=== PATIENT | female | born 1945 | race African-American/Black ===

== ENCOUNTER 2017-04-29 05:33 | Day surgery (SDC) | payer MEDICARE, OTHER ==
--- NOTE | 2017-04-26 17:45 | Pre-op HX & Phy Repo 2 SIG ---
DATE OF ADMISSION: 04/29/2017 DATE OF SURGERY: 04/29/2017. PROCEDURE TO BE PERFORMED: Pars plana vitrectomy, endolaser, and Avastin. HISTORY OF PRESENT ILLNESS: The patient is a 71-year-old lady with a history of a dense vitreous hemorrhage on the right eye. The patient has a long history of diabetes, hypertension, and diabetic retinopathy. She has undergone panretinal laser and prior Avastin injections, but the hemorrhaging has become worse on the right. She is admitted for vitrectomy on that side. PAST OCULAR HISTORY: Is as noted. CURRENT MEDICATIONS: Include bumetanide, gabapentin, Lantus insulin, atorvastatin, and loperamide. ALLERGIES: She is allergic to penicillin. PHYSICAL EXAMINATION: Best vision at the time of admission was 20/100 in the right eye and 20/80 in the left with pressures of 11. The anterior segments were quiet. The anterior segments were quiet except for the presence of significant nuclear cataracts. Funduscopic examination of the right eye shows significant diabetic maculopathy and proliferative retinopathy. There is a moderately dense vitreous hemorrhage down below. ASSESSMENT: Vitreous hemorrhage, right eye. PLAN: The plan is to perform a pars plana vitrectomy with endolaser and Avastin injection in the right. The risks and benefits of surgery have been gone over with the patient including potential for infection, hemorrhage, worsening of the cataract, glaucoma, and remote possibility of loss of the eye. The risk of anesthesia was discussed. The patient understands and consents to the surgery, which will be performed on Saturday morning. Vu Pulliam M.D. DR: RUBEN JOB#: [id number] CC:
[2017-04-29] VITALS (10 sets, daily range): BP systolic 92–119; BP diastolic 57–71
[~2017-04-29] VITALS: Ht 162.6 cm; Wt 66.7 kg
[~2017-04-29 05:33] MED LIST: Avastin 10mg Inj IVITRE ONE
[2017-04-29] MEDS ORDERED: Gatifloxacin Opth Solution 0.5% ONE (05:59)
[2017-04-29] MEDS ORDERED: Cyclopentolate 1% Opth Sol ONE (05:59)
[2017-04-29] MEDS ORDERED: Phenylephrine 2.5% Op Soln ONE (06:00)
[2017-04-29] MEDS ORDERED: Flurbiprofen 0.03% Opth Sol 2.5ml ONE (06:00)
[2017-04-29] MEDS ORDERED: Pred Forte 1% Opth Susp 1ml RIGHT EYE SCH (06:00)
[2017-04-29] MEDS ORDERED: Avastin 10mg Inj IVITRE ONE (06:00)
[2017-04-29] MEDS: Phenylephrine 2.5% Op Soln RIGHT EYE SCH ×3 (06:09→06:41)
[2017-04-29] MEDS: Cyclopentolate 1% Opth Sol RIGHT EYE SCH ×3 (06:09→06:41)
[2017-04-29] MEDS: Flurbiprofen 0.03% Opth Sol 2.5ml RIGHT EYE SCH ×3 (06:09→06:41)
[2017-04-29] MEDS: Gatifloxacin Opth Solution 0.5% RIGHT EYE SCH ×3 (06:10→06:42)
[2017-04-29] MEDS ORDERED: GABAPENTIN600 MG ORAL (06:53)
[2017-04-29] MEDS ORDERED: ASPIRIN-LOW81 MG ORAL (06:53)
[2017-04-29] MEDS ORDERED: METOLAZONE5 MG PO (06:53)
[2017-04-29] MEDS ORDERED: CARVEDILOL6.25 MG ORAL (06:53)
[2017-04-29] MEDS ORDERED: BUMETANIDE2 MG ORAL (06:53)
[2017-04-29] MEDS ORDERED: ALLOPURINOL100 M1 ORAL (06:53)
[2017-04-29] MEDS ORDERED: POTASSIUM CL ER PO (06:53)
[2017-04-29] MEDS ORDERED: VITAMIN D22000 UNIT PO (06:53)
[2017-04-29] MEDS ORDERED: ENTRESTO 49 MG1 EACH PO (06:53)
[2017-04-29] MEDS ORDERED: ATORVASTATIN CA10 MG ORAL (06:53)
[2017-04-29] MEDS ORDERED: BISACODYL5 MG ORAL (06:55)
[2017-04-29 07:05] LABS: EOSINOPHILS % (AUTO) 6.6 % (0.0-3.0); LYMPHOCYTES % (AUTO) 14.9 % (20.0-45.0); MEAN CORPUSCULAR HEMOGLOBIN 27.6 PG (27.0-31.0); MEAN CORPUSCULAR HGB CONC 31.2 G/DL (32.0-36.0); MEAN CORPUSCULAR VOLUME 88 FL (80-99); MEAN PLATELET VOLUME 10.4 FL (6.5-10.1); NEUTROPHILS % (AUTO) 68.4 % (45.0-75.0); PLATELET COUNT 133 K/UL (150-450); RED BLOOD COUNT 4.29 M/UL (4.20-5.40); RED CELL DISTRIBUTION WIDTH 16.6 % (11.6-14.8); WHITE BLOOD COUNT 6.9 K/UL (4.8-10.8)
[2017-04-29] MEDS ORDERED: Sodium Hyaluronate 10 mg/ml 0.85ml ONE (07:06)
[2017-04-29] MEDS ORDERED: Povidone-Iodine 5% opth solution ONE (07:06)
[2017-04-29] MEDS ORDERED: LANTUS SOL100 UNIT/1 SUBQ (07:19)
[2017-04-29] MEDS ORDERED: NOVOLOG100 UNIT/3 SUBQ (07:19)
[2017-04-29 07:31] LABS: ANION GAP 19 (5-15); CALCIUM 9.2 mg/dL (8.6-10.2); CARBON DIOXIDE 25 mEQ/L (20-30); CHLORIDE 96 mEQ/L (98-107); CREATININE 1.7 mg/dL (0.5-0.9); HEMOLYSIS 19; POTASSIUM 3.8 mEQ/L (3.4-4.9); SODIUM 140 mEQ/L (135-145)
--- NOTE | 2017-04-29 07:37 | Pre-Procedure Note/Attestation ---
Pre-Procedure Note/Attestation Complete Prior to Procedure Planned Procedure: right Procedure Narrative: PPV, membrane peel, endolaser, Avastin injection R eye Indications for Procedure Pre-Operative Diagnosis: Vitreous hemorrhage with traction R eye Attestation I attest that I discussed the nature of the procedure; its benefits; risks and complications; and alternatives (and the risks and benefits of such alternatives ), prior to the procedure, with the patient (or the patient's legal printing supplies sales representative). I attest that, if there was a reasonable possibility of needing a blood transfusion, the patient (or the patient's legal printing supplies sales representative) was given the [facility] standardized written summary, pursuant to the Romulo Jamari Blood Safety Act ([place] Health and Safety Code # 1645, as amended). I attest that I re-evaluated the patient just prior to the surgery and that there has been no change in the patient's H&P, except as documented below: LISA RIDLEY Apr 29, 2017 07:37
[2017-04-29] MEDS ORDERED: Norco 5mg/325mg tab ORAL PRN (07:45)
[2017-04-29] MEDS ORDERED: Indocyanine Green 25mg Inj INJ ONE (08:45)
[2017-04-29] MEDS ORDERED: Alfentanil 2ml Inj ONE (09:00)
[2017-04-29] MEDS ORDERED: Sterile Water Irrig 1000ml IRRIG ONE (09:00)
[2017-04-29] MEDS ORDERED: Lidocaine 1% MPF 10mg/ml 5ml ONE (09:00)
[2017-04-29] MEDS ORDERED: Midazolam 2mg/2ml Inj ONE (09:00)
[2017-04-29] MEDS ORDERED: Propofol 10mg/ml 20ml IV ONE (09:00)
[2017-04-29] MEDS ORDERED: NS Irrig 1000ml ONE (09:00)
[2017-04-29] MEDS ORDERED: LR 1000ml ONE (09:00)
--- NOTE | 2017-04-29 09:25 | Anethesia Preoperative Eval ---
Anesthesia Pre-op PMH/ROS General Date of Evaluation: Apr 29, 2017 Time of Evaluation: 08:54 Anesthesiologist: Amina ASA Score: ASA 3 Mallampati Score Class I : Soft palate, uvula, fauces, pillars visible Class II: Soft palate, uvula, fauces visible Class III: Soft palate, base of uvula visible Class IV: Only hard plate visible Mallampati Classification: Class III Surgeon: Heraclio Diagnosis: Vitreous Hemorrhage, Vein Ocullsion OD Surgical Procedure: Vitrectomy OD Anesthesia History: none Family History: no anesthesia problems Allergies: Coded Allergies: PENICILLINS (Verified Allergy, Unknown, 03/26/17) Medications: see eMAR Past Medical History Cardiovascular: Reports: CAD - Stent X3, HTN, MA, arrhythmia - Pacemaker, other - HL Gastrointestinal/Genitourinary: Reports: GERD Endocrine: Reports: DM Musculoskeletal/Integumentary: Reports: OA PSxH Narrative: B Laser Eye, Stent X3, Pacemaker, Battery Change, Cholecystectomy, CHAZ, R Lumpectomy with Lymph node resection Anesthesia Pre-op Phys. Exam Physician Exam Last Vital Signs Date Time Temp Pulse Resp B/P Pulse Ox O2 Delivery O2 Flow Rate FiO2 04/29/17 07:03 97.7 92 20 119/71 99 Room Air Constitutional: NAD Neurologic: CN 2-12 intact Cardiovascular: RRR Respiratory: CTA Gastrointestinal: S/NT/ND Airway Exam Mallampati Score: Class III MO: limited ROM: limited Teeth: missing, intact Anesthesia Pre-op A/P Labs Hematology Test 04/29/17 06:50 White Blood Count 6.9 K/UL (4.8-10.8) Red Blood Count 4.29 M/UL (4.20-5.40) Hemoglobin 11.8 G/DL (12.0-16.0) L Hematocrit 37.8 % (37.0-47.0) Mean Corpuscular Volume 88 FL (80-99) Mean Corpuscular Hemoglobin 27.6 PG (27.0-31.0) Mean Corpuscular Hemoglobin Concent 31.2 G/DL (32.0-36.0) L Red Cell Distribution Width 16.6 % (11.6-14.8) H Platelet Count 133 K/UL (150-450) L Mean Platelet Volume 10.4 FL (6.5-10.1) H Neutrophils (%) (Auto) 68.4 % (45.0-75.0) Lymphocytes (%) (Auto) 14.9 % (20.0-45.0) L Monocytes (%) (Auto) 9.0 % (1.0-10.0) Eosinophils (%) (Auto) 6.6 % (0.0-3.0) H Basophils (%) (Auto) 1.0 % (0.0-2.0) Chemistry Test 04/29/17 06:50 Sodium Level 140 mEQ/L (135-145) Potassium Level 3.8 mEQ/L (3.4-4.9) Chloride Level 96 mEQ/L (98-107) L Carbon Dioxide Level 25 mEQ/L (20-30) Anion Gap 19 (5-15) H Blood Urea Nitrogen 47 mg/dL (7-23) H Creatinine 1.7 mg/dL (0.5-0.9) H Estimat Glomerular Filtration Rate mL/min (>60) Glucose Level 148 mg/dL (74-106) H Calcium Level 9.2 mg/dL (8.6-10.2) Risk Assessment & Plan Assessment: ASA 3 Plan: GA Status Change Before Surgery: Robin Montoya MD Apr 29, 2017 09:25
--- NOTE | 2017-04-29 09:45 | Immediate Post-Op Evaluation ---
Immediate Post-Op Evalulation Immediate Post-Op Evalulation Procedure: Vitrectomy OD Date of Evaluation: Apr 29, 2017 Time of Evaluation: 09:55 IV Fluids: 500 LR Blood Products: 0 Estimated Blood Loss: 1 Urinary Output: 0 Blood Pressure Systolic: 110 Blood Pressure Diastolic: 75 Pulse Rate: 87 Respiratory Rate: 16 O2 Sat by Pulse Oximetry: 95 Temperature (Fahrenheit): 98.3 Pain Score (1-10): 1 Nausea: No Vomiting: No Complications 0 Patient Status: awake, reacts, patent, extubated, none Hydration Status: adequate Robin Huynh MD Apr 29, 2017 09:45
--- NOTE | 2017-04-29 09:47 | 48 Hour Post Anesthesia Eval ---
Post Anesthesia Evaluation Procedure: Vitrectomy OD Date of Evaluation: Apr 29, 2017 Time of Evaluation: 12:13 Blood Pressure Systolic: 124 0: 87 Pulse Rate: 86 Respiratory Rate: 16 Temperature (Fahrenheit): 98.4 O2 Sat by Pulse Oximetry: 100 Airway: patent Nausea: No Vomiting: No Pain Intensity: 1 Hydration Status: adequate Cardiopulmonary Status: Stable Mental Status/LOC: patient returned to baseline Follow-up Care/Observations: 0 Post-Anesthesia Complications: 0 Follow-up care needed: ready to discharge Robin Huynh MD Apr 29, 2017 09:47
--- NOTE | 2017-04-29 09:49 | Brief Operative Note ---
Immediate Post Operative Note Operative Note Chief Complaint: Clouds in vision R eye Pre-op Diagnosis: Vitreous hemorrhage with traction R eye Procedure: PPV, Kenalog injection, 2mg, Avastin injection 1.25mg, Endolaser, 1307 spots R eye. Post-op Diagnosis: same as pre-op Surgeon: Heraclio Despatch Clerk: osbaldo Anesthesiologist: Amina Anesthesia: MAC Specimen: none Complications: none Condition: stable Estimated Blood Loss: none Drains: none Implant(s) used?: No LISA RIDLEY Apr 29, 2017 09:49
[2017-04-29] MEDS ORDERED: Lidocaine 2% MPF 5ml Vial INJ ONE (10:13)
[2017-04-29] MEDS ORDERED: BSS 15ml BTL ONE (10:13)
[2017-04-29] MEDS ORDERED: EPINEPHrine 1mg/1ml Amp ONE (10:13)
[2017-04-29] MEDS ORDERED: Kenalog-10 5ml Inj ONE ×2 (10:13→10:20)
[2017-04-29] MEDS ORDERED: BSS 500ml btl ONE (10:13)
[2017-04-29] MEDS ORDERED: Tetracaine 0.5% Opth Soln ONE (10:13)
[2017-04-29] MEDS ORDERED: Dexamethasone 4mg/ml vial ONE (10:13)
[2017-04-29] MEDS ORDERED: Maxitrol Opth Oint 3.5gm ONE (10:14)
[2017-04-29] MEDS ORDERED: Bupivacaine 0.75% 30ml vial INJ ONE (10:14)
--- NOTE | 2017-04-29 11:00 | Pre-op HX & Phy Repo 2 SIG ---
DATE OF ADMISSION: 04/29/2017 REASON FOR EVALUATION AND HISTORY OF PRESENT ILLNESS: I was asked by Dr. Vu Pulliam to see this 71-year-old female, who is going for elective surgery on the right eye. The patient was evaluated and chart was reviewed. The patient has vitreous hemorrhage. Vein occlusion in the right eye. Please see full Ophthalmology History and Physical by by Dr. Vu Pulliam. PAST MEDICAL HISTORY AND REVIEW OF SYSTEMS: Remarkable for hypertension, history of myocardial infarction in 2008 with coronary angioplasty and 3 stent placements, also placement of permanent pacemaker and changed battery last year in June. The patient has a history of insulin-dependent diabetes mellitus, chronic atrial fibrillation, pacemaker placed, and right breast cancer. No respiratory problem. Denies history of thyroid problem. No anemia. The patient has a history of dialysis, and renal insufficiency, secondary to hypertension and diabetes mellitus. PAST SURGICAL HISTORY: Cholecystectomy, hysterectomy, right breast lumpectomy, multiple lymph node biopsies, history of coronary angioplasty, permanent pacemaker and laser treatments of eye. PRESENT MEDICATIONS: Include Lantus 40 units at bedtime, regular NovoLog insulin sliding scale, allopurinol, aspirin, atorvastatin, vitamin D2, pantoprazole, hydrocodone, and Tylenol. ALLERGIES: To penicillin. FAMILY HISTORY: Father from anemia and mother . HABITS: The patient denies history of smoke or alcohol habits or street drugs. PHYSICAL EXAMINATION: GENERAL: The patient is alert, 71-year-old female. VITAL SIGNS: Blood pressure 119/71, temperature 97 degrees, pulse 92 and regular, respirations 20, and O2 saturation 99%. SKIN: Clear. Dry and warm. LYMPHATICS: Lymph nodes not enlarged. HEENT: Head, normocephalic. Ears, clear and normal. Eye, full description per Dr. Vu Pulliam. Mouth: Upper denture . NECK: No jugular venous distention. Carotids artery +2. Trachea midline. CHEST: No deformity or asymmetry. Post right breast lumpectomy. HEART: Atrial fibrillation. No murmur. No S3 or S4. Left upper quadrant, permanent pacemaker, battery has changed last year in June. LUNGS: Clear to auscultation and percussion. No rales or rhonchi. No wheezing. ABDOMEN: Soft, benign. Liver and spleen not enlarged. No rebound. GENITOURINARY: dysuria. History of renal insufficiency. EXTREMITIES: No edema. No leg pain. No calf tenderness. Peripheral pulses equal bilateral. NEUROLOGIC: No tremor. No nystagmus. LABORATORY AND DIAGNOSTIC DATA: Echocardiogram, biventricular pacer. The patient did not eat or drink from last night. She did last night Lantus, because of low blood sugar of 76. Today, her blood sugar 136. Laboratory today, hemoglobin 11.8. BUN 47, creatinine 1.7, and potassium 3.8. IMPRESSION: 1. Vitreous hemorrhage and vein occlusion, right eye. 2. Insulin-dependent diabetes mellitus. 3. Gout. 4. Mild anemia, secondary to renal insufficiency. 5. Renal insufficiency, stage 3. 6. History of myocardial infarction. 7. Chronic atrial fibrillation. 8. Permanent pacemaker. 9. History of breast cancer of the right and she finished chemotherapy in 2003. PLAN: Pars plana vitrectomy, 23G membrane peeling endolaser right eye per Dr. Vu Pulliam. CONCLUSION: The patient has multiple medical problems included history of myocardial infarction and chronic atrial fibrillation. The patient has a history of hypertension, controlled. The patient has a history of renal insufficiency and dialysis, secondary to diabetes mellitus and hypertension. The patient has insulin-dependent diabetes mellitus, controlled. The patient did not eat or drink from last night. The patient's condition optimized for surgery. Thank you very much, Dr. Pulliam, for privilege to participate presurgical care of this interesting patient. Bhumika Riley M.D. DR: MICHAEL JOB#: [id number] CC:
[2017-04-29] MEDS ORDERED: LR 1000ml 1,000 ML IV SCH (17:30)
--- NOTE | 2017-04-29 18:01 | Operative Note - Dictated ---
DATE OF OPERATION: 04/29/2017 PREOPERATIVE DIAGNOSIS: Vitreous hemorrhage, right eye. POSTOPERATIVE DIAGNOSES: Vitreous hemorrhage, right eye. PROCEDURES: 1. Pars plana vitrectomy. 2. Kenalog injection. 3. Endolaser. 4. Avastin injection to the right eye. SURGEON: Vu Pulliam M.D. NEGATIVE SPOTTER: None. ANESTHESIA: Local sedation. ANESTHESIOLOGIST: Robin Huynh M.D. JUSTIFICATION FOR SURGERY: This 71-year-old lady with a long history of diabetes, developed a recurrent vitreous hemorrhage in the right eye despite extensive laser and Avastin injections. She was admitted for vitrectomy. BRIEF NOTE: The patient was brought to the operating room, placed on the OR table in supine position. After a time-out was performed and agreed upon by the staff, initial monitoring secured by Dr. Huynh, retrobulbar and Van Lint blocks were given in the standard way. When the blocks taken effect, she was prepped and draped in the normal manner. A lid speculum inserted into the right eye. Using a 23-gauge trocar system, cannulas were placed all except infranasal quadrant. Infusion secured inferotemporally. Vitrectomy was begun posterior to the lens taking care to avoid contact. A central core vitrectomy was done followed by vitrectomy leaving a small vitreous skirt. The posterior hyaloid had been noted to detach previously and this was removed with the vitrector. Kenalog was used in the visualization of the vitreous. The endolaser was brought into the eye and a power of 0.3 lainez and duration of 0.2 seconds, a total of 1307 lesions were applied in a broad band extending from just posterior to the equator out to near the pars plana. No problems were encountered. Scleral depression was performed and no peripheral breaks, tears, or detachments were seen. The sclerotomy sites appeared clean. The superior cannulas were removed from the eye and these wounds noted to be self-sealing. Through the infusion cannula, 1.25 mg of Avastin was injected. The eye was reinflated and this cannula was also removed with the wound here noted be self-sealing as well. The eye maintained adequate pressure. Subconjunctival Decadron and gentamicin were injected inferiorly and Maxitrol and atropine ointments were instilled. The eye was patched and shielded. The patient taken to recovery in excellent condition. There were no complications. Vu Pulliam M.D. DR: RAQUEL JOB#: [id number] CC: Vu Pulliam M.D.; Fax#: [phone]
== END 2017-04-29 11:45 | disposition home or self-care (01) ==
LOC: SUR 05:33
DX: H43.11 Vitreous hemorrhage, right eye (principal); H34.8112 Central retinal vein occlusion, right eye, stable; E11.319 Type 2 diabetes mellitus with unspecified diabetic retinopathy without macular edema; Z79.4 Long term (current) use of insulin; E11.22 Type 2 diabetes mellitus with diabetic chronic kidney disease; I12.9 Hypertensive chronic kidney disease with stage 1 through stage 4 chronic kidney disease, or unspecified chronic kidney disease; N18.3 Chronic kidney disease, stage 3 (moderate); D63.1 Anemia in chronic kidney disease; M10.9 Gout, unspecified; I25.2 Old myocardial infarction; I48.2 Chronic atrial fibrillation; E78.5 Hyperlipidemia, unspecified; Z95.5 Presence of coronary angioplasty implant and graft; Z95.0 Presence of cardiac pacemaker; Z85.3 Personal history of malignant neoplasm of breast; Z90.49 Acquired absence of other specified parts of digestive tract; Z90.710 Acquired absence of both cervix and uterus
CPT/HCPCS: 36415; 67039; 80048; 82962; 85025; 93005; J0171; J1100; J2250; J2704; J3301; J3470; J3490; J7120; J9035; 94003; 94150